=== PATIENT | female | born 1990 | race Caucasian/White ===

== ENCOUNTER 2021-12-29 00:25 | Emergency (ER) | payer OTHER ==
[~2021-12-29] VITALS: Ht 154.9 cm; Wt 40.8 kg
[2021-12-29 00:25] VITALS: BP 146/74
--- NOTE | 2021-12-29 00:29 | NUR ---
PT [facility]LS. TAKEN TO BED 7
--- NOTE | 2021-12-29 00:29 | NUR ---
Dr. Grider examining patient.
[2021-12-29] MEDS: NACL 0.9% 1,000 ML IV ONE ×2 (00:43→03:57)
[2021-12-29] MEDS: ONDANSETRON 4 MG/2 ML VIAL IVP ONE (00:44)
--- NOTE | 2021-12-29 00:50 | NUR ---
PT ALBERTO AT BEDSIDE. EXPLAINED EVERYTHING TO .
[2021-12-29 01:07] LABS: ANION GAP 17.1 (8-16); CARBON DIOXIDE 22.8 mmol/L (21-32); CREATININE 0.8 mg/dL (0.6-1.3)
[2021-12-29 01:15] LABS: POTASSIUM 2.9 mmol/L (3.5-5.1)
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
[2021-12-29 02:34] LABS: BARBITURATE, URINE NEGATIVE ng/ml (NEG <=200); BENZODIAZEPINE, URINE NEGATIVE ng/mL (NEG <=200); CANNABINOID, URINE NEGATIVE ng/mL (NEG <=50); COCAINE, URINE NEGATIVE ng/mL (NEG <=300); OPIATE, URINE NEGATIVE ng/mL (NEG <=2000); PHENCYCLIDINE SCREEN,URINE NEGATIVE ng/mL (NEG <=25)
--- NOTE | 2021-12-29 03:46 | NUR ---
PT SLEEPING IN A SUPINE POSITION. AT BEDSIDE.
[2021-12-29 04:58] VITALS: BP 88/56
--- NOTE | 2021-12-29 04:58 | NUR ---
Patient discharged with v/s stable. Written and verbal after care instructions given and explained. Patient verbalized understanding. Ambulatory with steady gait. All questions addressed prior to discharge. Advised to follow up with PMD.
== END 2021-12-29 04:58 | disposition home or self-care (01) ==
LOC: MED 00:25
DX: F10.129 Alcohol abuse with intoxication, unspecified (principal); R41.82 Altered mental status, unspecified; R11.10 Vomiting, unspecified; Z90.49 Acquired absence of other specified parts of digestive tract
CPT/HCPCS: 36415; 80048; 80305; 84703; 96361; 96374; 99283; G0482; J2405; J7030